=== PATIENT | male | born 2000 | race Hispanic/Latino ===

== ENCOUNTER 2020-03-08 18:05 | Emergency (ER) | payer OTHER ==
[2020-03-08] MEDS ORDERED: IBUPROFEN 400 MG TAB ONE (20:55)
[2020-03-08] MEDS ORDERED: LIDOCAINE VISCOUS 2% SOLN 15 ML UDC ONE (20:56)
[2020-03-08] MEDS ORDERED: TETANUS & DIPHTHERIA TOX,ADULT 0.5 ML VIAL ONE (20:56)
--- NOTE | 2020-03-08 20:59 | EDPHYS ---
Physician Documentation [facility] Name: Te Casillas Age: 19 yrs Sex: Male : 2000 Arrival Date: 03/08/2020 Time: 18:09 Bed 26 Private MD: ED Physician Chandler Garcia HPI: 03/08 21:37 This 19 yrs old Male presents to ER via Ambulatory with complaints of kb Laceration - finger. 21:37 The patient has a laceration related to: cooking, from a knife, occurred at a [employer] restaurant, and there are no complicating factors. The injury was accidental. The laceration(s) is(are) located on the dorsal aspect of distal phalanx of right index finger. Onset: The symptoms/episode began/occurred just prior to arrival. Associated signs and symptoms: Pertinent positives: heavy bleeding, Pertinent negatives: deformity, dizziness, loss of consciousness, numbness distal to injury, suspected foreign body. The patient has not experienced similar symptoms in the past. The patient has not recently seen a physician. Historical: - Allergies: 18:56 No Known Allergies; ca1 - Home Meds: 18:56 None [Active]; ca1 - PMHx: 18:56 None; ca1 - PSHx: 18:56 None; ca1 - Immunization history:: Adult Immunizations up to date, Last tetanus immunization: < 5 years ago Flu vaccine is not up to date. - Social history:: Smoking status: Patient denies any tobacco usage or history of. ROS: 21:36 Constitutional: Negative for fever, chills, and weight loss, Cardiovascular: Negative kb for chest pain, palpitations, and edema, Respiratory: Negative for shortness of breath, cough, wheezing, and pleuritic chest pain, Abdomen/GI: Negative for abdominal pain, nausea, vomiting, diarrhea, and constipation, MS/Extremity: Negative for injury and deformity, Neuro: Negative for headache, weakness, numbness, tingling, and seizure. 21:36 Skin: Positive for laceration(s), of the dorsal aspect of distal phalanx of right index finger. Exam: 21:37 Constitutional: This is a well developed, well nourished patient who is awake, alert, kb and in no acute distress. Head/Face: Normocephalic, atraumatic. MS/ Extremity: Pulses equal, no cyanosis. Neurovascular intact. Full, normal range of motion. Neuro: Awake and alert, GCS 15, oriented to person, place, time, and situation. Cranial nerves II-XII grossly intact. Motor strength 5/5 in all extremities. Sensory grossly intact. Cerebellar exam normal. Normal gait. 21:37 Respiratory: the patient does not display signs of respiratory distress, Respirations: normal. 21:37 Skin: injury, avulsion(s), a small of the dorsal aspect of distal phalanx of right index finger. Vital Signs: 18:54 BP 118 / 71; Pulse 61; Resp 18 S; Temp 97.6(TE); Pulse Ox 99% on R/A; Weight 81.65 kg ca1 (R); Height 6 ft. 0 in. (182.88 cm) (R); Pain 4/10; 18:54 Body Mass Index 24.41 (81.65 kg, 182.88 cm) ca1 MDM: 20:28 Patient medically screened. kb 21:36 Data reviewed: vital signs, nurses notes. Data interpreted: Pulse oximetry: on room air kb is 99 %. Interpretation: normal. Counseling: I had a detailed discussion with the patient and/or guardian regarding: the historical points, exam findings, and any diagnostic results supporting the discharge/admit diagnosis, the need for outpatient follow up, a family practitioner, to return to the emergency department if symptoms worsen or persist or if there are any questions or concerns that arise at home. Administered Medications: 20:45 Drug: Lidocaine Gel 2 % 1 application Route: Mucous Membrane; 5 03/09 05:41 Follow up: Response: No adverse reaction; Pain is decreased dm5 03/08 20:45 Drug: Ibuprofen 800 mg Route: PO; dm5 22:00 Follow up: Response: No adverse reaction 5 21:30 Drug: Tetanus-Diphtheria Toxoid Adult 0.5 ml {Kennel Supervisor: [facility]. Exp: dm5 07/22/2021. Lot #: [id number]. } Route: IM; Site: left deltoid; 22:00 Follow up: Response: No adverse reaction dm5 Disposition: 03/09 03:29 Co-signature as Attending Physician, Chandler Garcia MD. [email or web address] Disposition: 03/08/20 20:58 Discharged to Home. Impression: Laceration without foreign body of right index finger with damage to nail - avulsion laceration. - Condition is Stable. - Discharge Instructions: Deep Skin Avulsion. - Medication Reconciliation Form, Thank You Letter, Antibiotic Education, Prescription Opioid Use, Work release form form. - Follow up: Emergency Department; When: As needed; Reason: Worsening of condition. Follow up: Private Physician; When: 2 - 3 days; Reason: Recheck today's complaints, Continuance of care, Re-evaluation by your physician. Signatures: Claribel Gurrola, So Domingo RN RN dm5 Acbecca, Anel RN RN ca1 Chandler Garcia MD MD [email or web address] Corrections: (The following items were deleted from the chart) 03/08 22:01 20:58 03/08/2020 20:58 Discharged to Home. Impression: Laceration without foreign body dm5 of right index finger with damage to nail - avulsion laceration. Condition is Stable. Forms are Medication Reconciliation Form, Thank You Letter, Antibiotic Education, Prescription Opioid Use. Follow up: Emergency Department; When: As needed; Reason: Worsening of condition. Follow up: Private Physician; When: 2 - 3 days; Reason: Recheck today's complaints, Continuance of care, Re-evaluation by your physician. kb
--- NOTE | 2020-03-08 20:59 | ER ---
Nurse's Notes [facility] Name: Te Casillas Age: 19 yrs Sex: Male : 2000 Arrival Date: 03/08/2020 Time: 18:09 Bed 26 Private MD: Diagnosis: Laceration without foreign body of right index finger with damage to nail-avulsion laceration Presentation: 03/08 18:54 Chief complaint: Patient states: I was cutting at work and the knife slipped on my R ca1 pointing finger, happened around 1630. Bleeding controlled. Coronavirus screen: Client denies travel out of the [place] in the last 14 days. At this time, the client does not indicate any symptoms associated with coronavirus-19. Ebola Screen: Patient negative for fever greater than or equal to 101.5 degrees Fahrenheit, and additional compatible Ebola Virus Disease symptoms Patient denies exposure to infectious person. Patient denies travel to an Ebola-affected area in the 21 days before illness onset. No symptoms or risks identified at this time. Initial Sepsis Screen: Does the patient meet any 2 criteria? No. Patient's initial sepsis screen is negative. Does the patient have a suspected source of infection? No. Patient's initial sepsis screen is negative. Risk Assessment: Do you want to hurt yourself or someone else? Patient reports no desire to harm self or others. Onset of symptoms was March 08, 2020 at 16:30. 18:54 Method Of Arrival: Ambulatory ca1 18:54 Acuity: JAI 4 ca1 03/09 05:46 Complicating Factors: There are no complicating factors for this patient. dm5 Triage Assessment: 03/08 20:00 General: Appears in no apparent distress. Behavior is calm. Injury Description: dm5 Avulsion. Historical: - Allergies: 18:56 No Known Allergies; ca1 - Home Meds: 18:56 None [Active]; ca1 - PMHx: 18:56 None; ca1 - PSHx: 18:56 None; ca1 - Immunization history:: Adult Immunizations up to date, Last tetanus immunization: < 5 years ago Flu vaccine is not up to date. - Social history:: Smoking status: Patient denies any tobacco usage or history of. Screenin:00 Abuse screen: Denies threats or abuse. Denies injuries from another. Nutritional dm5 screening: No deficits noted. Tuberculosis screening: No symptoms or risk factors identified. Fall Risk None identified. Assessment: 20:00 Reassessment: Patient appears in no apparent distress at this time. Patient and/or dm5 family updated on plan of care and expected duration. Pain level reassessed. Patient is alert, oriented x 3, equal unlabored respirations, skin warm/dry/pink. Pain: Complains of pain in dorsal aspect of distal phalanx of right index finger. Neuro: Level of Consciousness is awake, alert, obeys commands. Respiratory: Airway is patent Respiratory effort is even, unlabored. Musculoskeletal: skin/nail avulsion of right index finger from knife while at work. Injury Description: Laceration sustained to dorsal aspect of distal phalanx of right index finger is clean, 0.5 to 2.5 cm long, bleeding moderately. Vital Signs: 18:54 BP 118 / 71; Pulse 61; Resp 18 S; Temp 97.6(TE); Pulse Ox 99% on R/A; Weight 81.65 kg ca1 (R); Height 6 ft. 0 in. (182.88 cm) (R); Pain 4/10; 18:54 Body Mass Index 24.41 (81.65 kg, 182.88 cm) ca1 ED Course: 18:09 Patient arrived in ED. as 18:56 Triage completed. ca1 18:56 Arm band placed on right wrist. ca1 19:26 Claribel Gurrola FNP-C is PHCP. kb 19:26 Chandler Garcia MD is Attending Physician. kb 20:00 Patient has correct armband on for positive identification. dm5 20:00 No provider procedures requiring assistance completed. Patient did not have IV access dm5 during this emergency room visit. Dressings: surgicel, 2x2 and smilely face Koban. 20:39 So Jorgensen, RN is Primary Nurse. dm5 Administered Medications: 20:45 Drug: Lidocaine Gel 2 % 1 application Route: Mucous Membrane; dm5 03/09 05:41 Follow up: Response: No adverse reaction; Pain is decreased dm5 03/08 20:45 Drug: Ibuprofen 800 mg Route: PO; dm5 22:00 Follow up: Response: No adverse reaction dm5 21:30 Drug: Tetanus-Diphtheria Toxoid Adult 0.5 ml {Leasing Specialist: [facility]. Exp: dm5 07/22/2021. Lot #: [id number]. } Route: IM; Site: left deltoid; 22:00 Follow up: Response: No adverse reaction dm5 Outcome: 20:00 Discharged to home ambulatory. dm5 20:00 Condition: good 20:00 Discharge instructions given to patient, Instructed on discharge instructions, follow up and referral plans. 20:58 Discharge ordered by MD. jones 22:01 Patient left the ED. dm5 Signatures: Claribel Gurrola, DAI-Álvaro JOSHI-So Stokes, RN RN dm5 Namita Chino Cheryl RN RN ca1
== END 2020-03-08 22:01 | disposition home or self-care (01) ==
LOC: ER 18:05
DX: S61.310A Laceration without foreign body of right index finger with damage to nail, initial encounter (principal); W26.0XXA Contact with knife, initial encounter; Y93.G3 Activity, cooking and baking; Y92.511 Restaurant or cafe as the place of occurrence of the external cause; Z23 Encounter for immunization
CPT/HCPCS: 90471; 90714; 99283